=== PATIENT | female | born 1975 | race Caucasian/White ===

== ENCOUNTER 2016-09-16 16:27 | Emergency (ER) | payer OTHER ==
[~2016-09-16] VITALS: Wt 71.5 kg
[~2016-09-16 16:27] MED LIST: DIPH25CA6; FERR27TA; PREN1TAB49; [UNRECOGNIZED DRUG - REMARK]
== END 2016-09-16 18:05 | disposition left against medical advice (07) ==
LOC: E/R 16:27
DX: Z53.21 Procedure and treatment not carried out due to patient leaving prior to being seen by health care provider (principal)

== ENCOUNTER 2017-07-08 07:42 | Emergency (ER) | payer OTHER ==
[~2017-07-08] VITALS: Wt 78.0 kg
[2017-07-08] MEDS ORDERED: HYDROCODONE/APAP (5/325) TAB PO ONE (08:30)
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
[2017-07-08] MEDS ORDERED: TRAM50TA2 PO (09:28)
[2017-07-08] MEDS ORDERED: CYCL-319 PO (09:28)
[2017-07-08] MEDS ORDERED: NAPR-260 PO (09:28)
[2017-07-08 09:36] VITALS: RESP 18
== END 2017-07-08 09:39 | disposition home or self-care (01) ==
LOC: FTE 07:42
DX: M54.2 Cervicalgia (principal); M54.5 Low back pain; G90.511 Complex regional pain syndrome I of right upper limb
CPT/HCPCS: 72040; 72100; 73030; Z7502; Z7610